=== PATIENT | female | born 2000 | race Asian ===

== ENCOUNTER 2018-12-22 23:55 | Emergency (ER) | payer SELFPAY ==
[~2018-12-22] VITALS: Ht 154.9 cm; Wt 86.4 kg
--- NOTE | 2018-12-23 00:33 | NUR ---
CALLED [facility] AND SPOKE WITH BRE.
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
[2018-12-23 01:12] LABS: CLARITY,URINE CLEAR (Clear); COLOR,URINE YELLOW (Yellow); GLUCOSE, URINE NEGATIVE (Neg); KETONES,URINE 15 mg/dl (Neg); LEUKOCYTE ESTERASE ,URINE NEGATIVE (Neg); NITRITES, URINE NEGATIVE (Neg); OCCULT BLOOD,URINE TRACE-INTACT (Neg); PH,URINE 5.5 (4.8-8.0); PROTEIN,URINE NEGATIVE (Neg); UA COLLECTION TYPE CLN CATCH MIDSTREAM
[2018-12-23 01:18] LABS: URINE AMPHETAMINE SCREEN NEGATIVE (Neg); URINE BARBITUATE SCREEN NEGATIVE (Neg); URINE BENZODIAZEPINES SCREEN NEGATIVE (Neg); URINE CANNABINOID SCREEN NEGATIVE (Neg); URINE COCAINE SCREEN NEGATIVE (Neg); URINE METHADONE SCREEN NEGATIVE (Neg); URINE OPIATE SCREEN NEGATIVE (Neg); URINE PHENCYCLIDINE SCREEN NEGATIVE (Neg)
[2018-12-23 01:21] LABS: BACTERIA,URINE NONE SEEN /HPF (Neg); WBC,URINE 0-4 /HPF (0-4)
--- NOTE | 2018-12-23 01:21 | NUR ---
MAUREEN INTERVIEWED PT AT BEDSIDE. AFTER SPEAKING WITH ROUND CUTTER OPERATOR, PT WILL BE PLACED ON 5150 FOR MENTAL HEALTH TO EVAL
[2018-12-23 01:22] LABS: MUCUS STRANDS MANY /LPF (Neg); SQUAMOUS EPITHELIAL CELL,UR FEW /LPF (FEW)
[2018-12-23] MEDS ORDERED: NO HOME MEDS (01:38)
--- NOTE | 2018-12-23 01:52 | NUR ---
MAUREEN GAVE ORIGINAL 5150 TO [facility] STAFF AND PLACED IN CHART
[2018-12-23 01:55] LABS: URINE HCG NEGATIVE (NEG)
[2018-12-23 02:08] LABS: BASOPHILS # (AUTO) 0.1 X10'3 (0-0.2); BASOPHILS % (AUTO) 0.6 % (0-1); EOSINOPHILS # (AUTO) 0.2 X10'3 (0-0.9); EOSINOPHILS % (AUTO) 2.4 % (0-6); HEMATOCRIT 44.9 % (35.0-45.0); HEMOGLOBIN 15.6 g/dl (12.0-16.0); LYMPHOCYTES # (AUTO) 2.3 X10'3 (1.1-4.8); LYMPHOCYTES % (AUTO) 24.2 % (21-51); MEAN CORPUSCULAR HEMOGLOBIN 31.7 PG (27.0-31.0); MEAN CORPUSCULAR HGB CONC 34.7 g/dL (33.0-36.5); MEAN CORPUSCULAR VOLUME 91.2 FL (78-98); MEAN PLATELET VOLUME 8.9 FL (7.4-10.4); MONOCYTES # (AUTO) 0.6 X10'3 (0-0.9); MONOCYTES % (AUTO) 5.9 % (2-12); NEUTROPHILS # (AUTO) 6.4 X10'3 (1.8-7.7); NEUTROPHILS % (AUTO) 66.9 % (42-75); PLATELET COUNT 180 X10'3 (140-440); RED BLOOD COUNT 4.92 X10'6 (4.20-5.60); RED CELL DISTRIBUTION WIDTH 12.7 % (11.5-14.5); WHITE BLOOD COUNT 9.6 X10'3 (4.5-11.0)
[2018-12-23 02:13] LABS: ALANINE AMINOTRANSFERASE 45 U/L (12-78); ALBUMIN 4.3 G/DL (3.4-5.0); ALKALINE PHOSPHATASE 59 IU/L (20-180); ANION GAP 11 (8-16); ASPARTATE AMINO TRANSFERASE 24 U/L (10-37); BILIRUBIN,TOTAL 0.8 MG/DL (0.1-1.0); BLOOD UREA NITROGEN 17 MG/DL (7-18); BUN/CREATININE RATIO 19.3 (6.6-38.0); CALCIUM 9.3 MG/DL (8.5-10.1); CHLORIDE 107 MMOL/L (99-107); CREATININE 0.88 MG/DL (0.40-0.90); GLUCOSE 111 MG/DL (70-104); POTASSIUM 3.5 MMOL/L (3.5-5.1); SODIUM 142 MMOL/L (135-145); TOTAL CARBON DIOXIDE 24.1 MMOL/L (24-32); TOTAL PROTEIN 8.6 G/DL (6.4-8.2); eGFR 82 ML/MIN
[2018-12-23 02:22] LABS: ETHANOL < 0.010 GM/DL (0.0-0.010)
--- NOTE | 2018-12-23 05:28 | NUR ---
PT RESTING IN BED, APPEARS IN NO DISTRESS.
--- NOTE | 2018-12-23 13:36 | NUR ---
PT MOVED FROM BED 16 TO BED 24 VIA WHEELCHAIR BY JUAN RAMON CHARGE NURSE
--- NOTE | 2018-12-23 13:56 | NUR ---
PT SLEEPING, NO S/S OF DISTRESS, DISCOMFORT OR AGITATION, RESPIRATIONS SPONTANEOUS, EVEN AND UNLABORED.
--- NOTE | 2018-12-23 15:20 | NUR ---
PT SLEEPING, NO S/S OF DISTRESS, DISCOMFORT OR AGITATION, RESPIRATIONS SPONTANEOUS, EVEN AND UNLABORED.
--- NOTE | 2018-12-23 16:38 | NUR ---
Pt up to use the bathroom and ask for something to eat. Pt given crackers.
--- NOTE | 2018-12-23 17:34 | NUR ---
Pt walking back and forth in front of the nursing station with her . Steady gait noted.
[2018-12-23 17:42] VITALS: BP 108/69
[2018-12-23] MEDS ORDERED: acetaminophen 325mg tablet PO ONE (18:00)
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
--- NOTE | 2018-12-23 18:41 | NUR ---
[facility]AD unit called to let us know that this patient will be transferred to [facility] [place] and the parcel post truck driver will be here to pick this patient up to transport her at 2014. He stated that he spoke with Donna from [facility] and they are expecting this patient.
== END 2018-12-23 20:28 ==
LOC: ER 23:56
DX: S01.84XA Puncture wound with foreign body of other part of head, initial encounter (principal); F32.9 Major depressive disorder, single episode, unspecified; X74.01XA Intentional self-harm by airgun, initial encounter; Y93.89 Activity, other specified; Y92.89 Other specified places as the place of occurrence of the external cause; Y99.8 Other external cause status
CPT/HCPCS: 36415; 70450; 80053; 80305; 80320; 81001; 81025; 84443; 85025; 99285